=== PATIENT | male | born 1955 | race Caucasian/White ===

== ENCOUNTER 2019-01-20 17:32 | Observation (INO) ==
[~2019-01-20 17:32] MED LIST: AMMONIA AROMATIC ONE
[2019-01-20 18:30] LABS: BASO# 0.03 X1000 (0.0-0.2); BASO% 0.3 % (0.0-0.8); EOS# 0.08 X1000 (0.0-0.7); EOS% 0.8 % (0.0-10.0); HEMATOCRIT 39.6 % (42.0-52.0); HEMOGLOBIN 14.8 g/dL (14.0-18.0); IMM GRAN# 0.03 X1000 (0.0-0.04); IMM GRAN% 0.3 % (0.0-0.5); LYMPH# 3.14 X1000 (1.2-3.4); LYMPH% 32.8 % (20.5-51.1); MCH 33.3 PG (27-31); MCHC 37.4 g/dL (33-37); MONO# 1.19 X1000 (0.11-0.59); MONO% 12.4 % (1.7-9.3); MPV 10.2 FL (7.4-10.4); NEUT# 5.09 X1000 (1.4-6.5); NEUT% 53.4 % (42.2-75.2); PLT 159 X1000 (130-400); RBC 4.45 XMIL (4.7-6.1); RDW 13.2 % (11.5-14.5); WBC 9.56 X1000 (4.8-10.8)
--- NOTE | 2019-01-20 18:32 | EKG Report ---
Test Performed on : 01/20/2019 5:40:09 PM Test Reason : CP Blood Pressure : / mmHG Vent. Rate : 105 BPM Atrial Rate : 105 BPM P-R Int : 172 ms QRS Dur : 090 ms QT Int : 346 ms P-R-T Axes : 070 032 051 degrees QTc Int : 457 ms Sinus tachycardia. Otherwise normal ECG When compared with ECG of 06-JUL-2016 22:19, No significant change was found Unconfirmed Result
[2019-01-20 18:35] LABS: AGAP 20; ALBUMIN 4.4 g/dL (3.5-5.0); ALKALINE PHOSPHATASE 77 U/L (32-122); CHLORIDE 85 mmol/L (98-107); CK PROFILE 338 U/L (24-204); GLUCOSE 101 mg/dL (70-104); GOT 118 U/L (10-34); GPT 87 U/L (10-44); POTASSIUM 3.4 mmol/L (3.5-5.1); SODIUM 126 mmol/L (136-145); TCO2 21 mmol/L (25-35); TOTAL PROTEIN 6.9 g/dL (6.3-8.3)
[2019-01-20 18:38] LABS: BUN 9 mg/dL (8-22); CALCIUM 8.3 mg/dL (8.8-10.2); CREATININE 0.8 mg/dL (0.7-1.2); ESTIMATED GFR > 60
[2019-01-20 18:45] LABS: INR 1.88; PROTIME 22.5 Seconds (11.0-16.0)
[2019-01-20 18:46] LABS: PTT 43.1 Seconds (22.3-41.8)
--- NOTE | 2019-01-20 18:57 | ED EKG INTERP ---
This chart was entered by Frederic Springer Scribe, acting as scribe for Hernán Chan MD. EKG Interpretation - EKG Time of EKG reading by physician:: 17:42 EKG Read and Signed by:: Hernán Chan EKG Interpretation (*Must complete 3 of following elements*): Normal Rate: 105 Rhythm: sinus tachycardia [place]: normal QRS: normal MO Interval: normal ST Wave: normal Attestation - Physician/ RIA Attestation The physician spent face to face time with patient:: Yes Advanced Practice Provider documentation review:: Supervising physician onsite and consulted in the evaluation and care of this patient. The physician did have a face to face encounter with the patient. This chart was documented by the indicated scribe, (Frederic Springer Scribe) and accurately reflects the services I performed and decisions made by me, Hernán Chan MD, as attested by the provider's signature.
--- NOTE | 2019-01-20 19:03 | Diag Imaging Result Doc PS360 ---
EXAM: CT HEAD/C-SPINE W/O CONTRAST INDICATION: AMS TECHNIQUE: This exam was performed using automated exposure control, adjustment of mA or kV according to patient size, and/or use of iterative reconstruction technique. COMPARISON: None. FINDINGS: Head: There is no definite acute infarct given the limited sensitivity of CT versus MRI. There is no discrete intracranial mass, mass effect, or intracranial hemorrhage. There is mild chronic maxillary and sphenoid sinus mucosal thickening. Surrounding soft tissues are grossly unremarkable, otherwise. The calvaria is intact. C-spine: There is excessive motion artifact throughout the study, which may limit evaluation of fine bony details. There is advanced multilevel facet arthropathy throughout the cervical spine. There is also multilevel degenerative disc disease, most significant at C6-7 where there is loss of disc space height and marginal marginal osteophyte formation. This is causing varying degrees of central canal and neuroforaminal narrowing at multiple levels. Otherwise, there is no discrete fracture, subluxation, or intrinsic osseous lesion. The surrounding soft tissues are essentially unremarkable. IMPRESSION: 1.No evidence of acute intracranial pathology. 2.Advanced multilevel degenerative arthropathy throughout the cervical spine but no evidence of fracture or other definite acute C-spine injury. Electronically signed by Dom Douglass 01/20/2019 7:00 PM
[2019-01-20 19:04] LABS: CK INDEX 2.5 (0.0-2.5); CK-MB 8.33 ng/mL (0.0-5.0)
--- NOTE | 2019-01-20 19:04 | Diag Imaging Result Doc PS360 ---
EXAM: CT MAXILLOFACIAL(SINUS) W/O CO INDICATION: FALL/CONTUSION TO LEFT EYE TECHNIQUE: COMPARISON: None. FINDINGS: There is no evidence of facial bone fracture. Specifically, the orbits are intact. The mandible is normally located. There is chronic maxillary and sphenoid sinus mucosal thickening. There is no evidence of intrasinus hemorrhage. The mastoid air cells are clear. The globes are intact. There is no retrobulbar hematoma. Surrounding soft tissues are essentially unremarkable by CT, otherwise. IMPRESSION: No evidence of facial bone fracture. Electronically signed by Dom Douglass 01/20/2019 7:02 PM
[2019-01-20 19:09] LABS: COSMO 252
[2019-01-20 19:16] LABS: UR AMPHETAMINES QUAL NONE DETECTED (NONE DETECT); UR BARBITUATES QUAL NONE DETECTED (NONE DETECT); UR BENZODIAZEPIN QUAL NONE DETECTED (NONE DETECT); UR CANNABINOIDS QUAL NONE DETECTED (NONE DETECT); UR COCAINE QUAL NONE DETECTED (NONE DETECT); UR METHADONE QUAL NONE DETECTED (NONE DETECT); UR METHAMPHETAMINE QUAL NONE DETECTED (NONE DETECT); UR OPIATES QUAL NONE DETECTED (NONE DETECT); UR OXYCODONE QUAL NONE DETECTED (NONE DETECT); UR PCP QUAL NONE DETECTED (NONE DETECT); UR PROPOXYPHENE QUAL NONE DETECTED (NONE DETECT); UR TCA QUAL NONE DETECTED (NONE DETECT)
--- NOTE | 2019-01-20 19:33 | Diag Imaging Result Doc PS360 ---
EXAM: CHEST-PORTABLE INDICATION: CP TECHNIQUE: One view COMPARISON: 07/06/2016 FINDINGS: The lungs are grossly clear. There is no discrete pleural fluid collection or pneumothorax. The cardiomediastinal silhouette and central vasculature are grossly unremarkable. IMPRESSION: No evidence of acute pathology by plain radiograph. Electronically signed by Dom Douglass 01/20/2019 7:31 PM
[2019-01-20] MEDS ORDERED: HALDOL IV ONE (19:37)
[2019-01-20] MEDS ORDERED: M.V.I.-12 10 ML, FOLIC ACID 1 MG, MAGNESIUM SULFATE 1 GM, THIAMINE 100 MG in NS 1,000 ML IV ONE (19:37)
[2019-01-20] MEDS ORDERED: ATIVAN IV ONE (19:37)
[2019-01-20] MEDS ORDERED: NS 1,000 ML IV ONE (19:37)
[2019-01-20] MEDS ORDERED: BENADRYL IV ONE (19:37)
[2019-01-20] MEDS ORDERED: MAGNESIUM SULFATE ONE (20:00)
[2019-01-20] MEDS ORDERED: THIAMINE ONE (20:01)
[2019-01-20] MEDS ORDERED: NS 1,000 ML ONE (21:49)
[2019-01-21] MEDS ORDERED: HALDOL IV ONE (01:26)
[2019-01-21] MEDS ORDERED: BENADRYL IV ONE (01:26)
[2019-01-21] MEDS ORDERED: ATIVAN IV ONE (01:26)
[2019-01-21] MEDS ORDERED: M.V.I.-12 10 ML, FOLIC ACID 1 MG, MAGNESIUM SULFATE 1 GM, THIAMINE 100 MG in NS 1,000 ML IV ONE (01:33)
[2019-01-21] MEDS ORDERED: ATIVAN IV PRN (01:33)
[2019-01-21 07:53] LABS: AGAP 15; ALBUMIN 3.6 g/dL (3.5-5.0); ALKALINE PHOSPHATASE 59 U/L (32-122); BUN 5 mg/dL (8-22); CALCIUM 7.5 mg/dL (8.8-10.2); CHLORIDE 103 mmol/L (98-107); COSMO 279; CREATININE 0.7 mg/dL (0.7-1.2); ESTIMATED GFR > 60; GLUCOSE 78 mg/dL (70-104); GOT 99 U/L (10-34); GPT 73 U/L (10-44); POTASSIUM 3.4 mmol/L (3.5-5.1); SODIUM 142 mmol/L (136-145); TCO2 24 mmol/L (25-35); TOTAL PROTEIN 6.1 g/dL (6.3-8.3)
--- NOTE | 2019-01-21 12:56 | HISTORY AND PHYSICAL ---
PRIMARY CARE PROVIDER: [facility]. CHIEF COMPLAINT: Fell and hit head. HISTORY OF PRESENT ILLNESS: Mr. Acuna is a known alcoholic. He drinks a 6 pack per day, depression, PTSD, COPD, GERD, liver disease, coronary artery disease, congestive heart failure, hypertension, myocardial infarction, chronic pain. He states he called 911 last night because he fell and hit his head. Per his report, he had not been drinking much. He was brought to the ED by EMS. His alcohol level was over 400. Throughout the night, they tried to get him admission to the [facility] in [place]. After the sister came and they had everything squared away to transport him, he refused to sign the transfer papers. Given his alcohol level and hyponatremia, they did a head and cervical spine CT that showed no evidence of acute intracranial pathology as well as maxillofacial that showed no facial bone fracture. He was admitted overnight to be watch for DTs. He did receive 1 bolus of saline in the ER. His sodium is back up to 142. He was also given 2 banana bangs as well as several doses of Ativan and Haldol. At this time, the patient really has no desire to be interviewed. He just wants to sleep, using foul language, and his only intention was calling 911 because he fell and hit his head on the floor. He did not wish to seek any rehab. He at times will use foul language and then will just not answer questions. REVIEW OF SYSTEMS: A 12point review of systems completely negative except for those mentioned in HPI, limited due to patient unwillingness to cooperate. PAST MEDICAL HISTORY: 1. Alcoholism. 2. Alcohol liver disease. 3. Coronary artery disease status post [place]. 4. Hypertension. 5. Congestive heart failure. 6. PTSD. 7. Depression. 8. GERD. PAST SURGICAL HISTORY: Hernia repair. SOCIAL HISTORY: Per the patient, he drinks a 6 pack of beer per day. FAMILY HISTORY: Unknown. HOME MEDICATIONS: Have not been verified. ALLERGIES: No known drug allergies. PHYSICAL EXAMINATION: VITAL SIGNS: Temperature is 98.6 degrees, heart rate 77, respirations 25, blood pressure 103/70, O2 is 94% on 2 L nasal cannula. GENERAL: Mr. Acuna is an unpleasant 63-year-old male who is lying in the ICU bed in no acute distress. HEENT: Appears to be atraumatic, normocephalic. PERRL. NECK: Supple, trachea midline. CARDIOVASCULAR: S1, S2 appreciated. No murmurs, gallops, or rubs. RESPIRATORY: Lungs sound appear to be clear. The patient would not take a deep breaths. GASTROINTESTINAL: Soft, nontender, nondistended. Positive bowel sounds 4 quads. EXTREMITIES: Negative for edema. NEUROLOGIC: The patient did awake to his name being called. He was somewhat agitated at questioning and would use foul language when answering, did not really appreciate any focal deficits. He was able to move himself around in the bed without any problems. DIAGNOSTIC DATA: 1. Head cervical spine CT: No evidence of acute intracranial pathology. 2. Maxillofacial: No evidence of facial bone fracture. 3. EKG: Sinus tachycardia. LABORATORY DATA: White count 9, hemoglobin and hematocrit 14 and 39, platelet count is 159,000. Sodium 126, potassium 3.4, BUN 9, creatinine 0.8, blood glucose 101. A.M. labs: Sodium was up to 142, potassium 3.4, BUN 5, creatinine 0.7, blood glucose was 78. AST is down to 99, ALT down to 73. Alcohol level is down to 198. ASSESSMENT AND PLAN: 1. Hyponatremia, resolved. 2. Alcoholism. The patient states he drinks 6 beers per day. At this point in time, he is not looking for any type of rehabilitation services. We will monitor him for DT. He does have Ativan ordered p.r.n. for agitation. He has a banana bag, currently infusing. 3. Fall secondary to alcoholism. Imaging did not show anything acute. 4. Hypertension. We will continue on home medications have been reconciled. Currently normotensive. 5. Metabolic encephalopathy secondary to #1, improving. 6. Coronary artery disease status post myocardial infarction. No complaints of chest pain. 7. Gastroesophageal reflux disease. 8. Post-traumatic stress disorder, depression, aware. 9. Further recommendation to follow physician evaluation, laboratory, and diagnostic data. Dictated by CHRIS Fernandez for Lul Cheek MD cc: Lul Cheek MD [facility]
[2019-01-21 13:56] VITALS: BP 149/81
--- NOTE | 2019-01-22 07:15 | HISTORY AND PHYSICAL ---
ADDENDUM: Patient seen and examined by myself. Full note dictated and discussed with nurse practitioner. Patient presented to the hospital confused, disoriented and unfortunately was acutely intoxicated. His sodium was 126. He has a known history of coronary artery disease, hypertension, MA, COPD, and history of cerebrovascular accident. His blood pressures were low at 86/63. He was admitted to the hospital to the ICU overnight, and given IV fluids. We will continue to follow. Recheck sodium. Further orders as needed. cc: Lul Cheek MD
--- NOTE | 2019-01-22 12:34 | DISCHARGE SUMMARY ---
ADMISSION DATE: 01/21/2019 DISCHARGE DATE: 01/21/2019 PRIMARY CARE PROVIDER: [facility] PERTINENT PROCEDURES: 1. Head CT: No evidence of acute intracranial pathology. Advanced multilevel degeneration arthropathy throughout the cervical spine, but no evidence of fracture or other definite acute C-spine injury. 2. Maxillofacial: No evidence of facial bone fracture. 3. Chest x-ray: No evidence of acute pathology. DISCHARGE DIAGNOSES: 1. Toxic metabolic encephalopathy secondary to alcoholism, improved. Patient is now awake, alert, oriented, eating, requesting to be discharged home. 2. Alcoholism. The patient drinks 6 beers per day. He is not looking for any type of rehabilitation services at this time. 3. Hyponatremia, completely resolved. 4. Fall secondary to alcohol intoxication. Imaging did not show anything acute. 5. Hypertension. Continue home medications. 6. Coronary artery disease status post myocardial infarction. No complaints of chest pain. 7. Gastroesophageal reflux disease. Continue home medications. 8. Posttraumatic stress disorder/depression. Aware. HOSPITAL COURSE: Briefly, Mr. Acuna came to the ED on 01/20/2019. He was also to be transferred to the [facility] for detoxification through the assistance of his sister; however, the patient refused to sign transfer paper. He had some harsh words with his sister, and he ended up being admitted to our medical service on 01/21/2019. His initial alcohol level was over 400, and this a.m. he is down to 198. He is now awake, alert, oriented, sitting up in the bed in the ICU, eating, and requesting to be discharged. His sodium level is back to normal, and he will be discharged back home with self-care after his ride arrives. VITAL SIGNS AT TIME OF DISCHARGE: Temperature 99.1 degrees, heart rate 91, respirations 26, blood pressure 158/94, O2 is 95%. DISCHARGE DIET: Healthy heart. DISCHARGE MEDICATIONS: Will be his home medications. DISPOSITION: Mr. Acuna is being discharged home with self-care. He is not currently wishing to seek treatment. DISCHARGE INSTRUCTIONS: He can return to the ED or call 911 for any worsening of symptoms. We have reported that he does need alcohol detoxification, and he was accepted to the [facility]; however, he refused to transfer. He has been educated on alcohol abstinence again and can return to the ED or call 911 for any worsening of symptoms. FOLLOW-UP: He will need [facility]. Dictated by CHRIS Fernandez for Lul Cheek MD cc: Lul Cheek MD
--- NOTE | 2019-01-22 15:46 | DISCHARGE SUMMARY ---
ADMISSION DATE: 01/20/2019 DISCHARGE DATE: 01/21/2019 DISCHARGE DIAGNOSES: 1. Hyponatremia. Sodium 126 admit, 146 discharge, resolved. 2. Acute alcohol intoxication, resolved. 3. Coronary artery disease. 4. Hypertension. 5. Chronic obstructive pulmonary disease. 6. Cerebrovascular accident. CONSULTATIONS: None. PROCEDURE: None. BRIEF HOSPITAL COURSE: Patient is a middle-aged male who presented to the hospital secondary to acute alcohol intoxication. Thankfully, he continued to improve. On discharge, he is in no current distress. He is awake, alert, oriented. Stated he is not going to the hospital. Denies any suicidal or homicidal ideations. Sodium level was returned back to normal and therefore we will discharge him home. DISPOSITION: Patient will be discharged home. Will follow up outpatient with primary care of choice. Discussed with patient that he needs to stop drinking. He needs to get into counseling. TIME SPENT: Greater than 30 minutes was spent in total care. cc: Lul Cheek MD
== END 2019-01-21 14:17 | disposition home or self-care (01) ==
LOC: P.ED 17:32 → SUATTDRO 01-21 01:50 → INTOOBSV 01-21 01:50 → P.ICU 01-21 01:50
PROVIDERS: ATTEND Family Medicine
CPT/HCPCS: 70450; 70486; 71010; 71045; 72125; 80053; 80104; 80301; 80305; 80307; 80320; 82055; 82550; 82553; 82948; 83605; 84484; 85025; 85610; 85730; 93005; G0431; G0434; G0477; G0480; G6040; J1200; J1630; J2060; J3411; J3475; J7030; XXXXX

== ENCOUNTER 2019-02-08 11:21 | Inpatient (IN) ==
[2019-02-08 11:31] LABS: OCCULT BLOOD 1 POSITIVE (NEGATIVE)
[2019-02-08 11:40] LABS: BASO# 0.02 X1000 (0.0-0.2); BASO% 0.3 % (0.0-0.8); EOS# 0.07 X1000 (0.0-0.7); HEMATOCRIT 35.9 % (42.0-52.0); IMM GRAN# 0.04 X1000 (0.0-0.04); IMM GRAN% 0.6 % (0.0-0.5); LYMPH# 1.08 X1000 (1.2-3.4); LYMPH% 15.1 % (20.5-51.1); MCHC 36.2 g/dL (33-37); MCV 91.1 FL (81-99); MONO% 11.2 % (1.7-9.3); MPV 11.2 FL (7.4-10.4); NEUT# 5.16 X1000 (1.4-6.5); NEUT% 71.8 % (42.2-75.2); PLT 106 X1000 (130-400); RBC 3.94 XMIL (4.7-6.1); RDW 14.5 % (11.5-14.5); WBC 7.17 X1000 (4.8-10.8)
[2019-02-08 12:08] LABS: ALBUMIN 3.7 g/dL (3.5-5.0); CALCIUM 7.7 mg/dL (8.8-10.2); POTASSIUM 3.1 mmol/L (3.5-5.1); TOTAL BILIRUBIN 1.9 mg/dL (0.20-1.00); TOTAL PROTEIN 5.8 g/dL (6.3-8.3)
[2019-02-08 12:32] LABS: CK INDEX 2.3 (0.0-2.5); CK-MB 5.36 ng/mL (0.0-5.0)
[2019-02-08 13:00] LABS: INR 2.08; PROTIME 24.4 Seconds (11.0-16.0)
[2019-02-08 13:01] LABS: PTT 37.7 Seconds (22.3-41.8)
--- NOTE | 2019-02-08 13:18 | Diag Imaging Result Doc PS360 ---
EXAM: CHEST-2 VIEWS HISTORY: pain TECHNIQUE: Chest two views COMPARISON: 01/20/2019 FINDINGS: The lungs are well expanded. The heart is not enlarged. The vessels are not distended. There are no infiltrates. No pleural effusions. IMPRESSION: No acute abnormality. Electronically signed by Duke Milligan 02/08/2019 1:16 PM
[2019-02-08] MEDS ORDERED: D5 1/2 NS 1,000 ML IV ONE (13:42)
--- NOTE | 2019-02-08 14:26 | Diag Imaging Result Doc PS360 ---
EXAM : CT HEAD/C-SPINE W/O CONTRAST HISTORY: pain TECHNIQUE: 1. CT head without contrast 2. CT cervical spine without contrast COMPARISON: 01/20/2019 FINDINGS: Head: No parenchymal hemorrhage. No epidural or subdural hematoma. No subarachnoid hemorrhage. No mass identified on this noncontrasted exam. No hydrocephalus. No sinus opacification. Cervical spine: There is good alignment to the cervical spine. No precervical soft tissue swelling. No subluxation. No fracture. Moderate degenerative bone spurring. IMPRESSION: Head: No hemorrhage. No no change. Cervical spine: No change. An MRI may be beneficial. This exam was performed using automated exposure control, adjustment of mA or kV according to patient size, and/or use of iterative reconstruction technique. Electronically signed by Duke Milligan 02/08/2019 2:24 PM
[2019-02-08] MEDS ORDERED: ATIVAN IV ONE (15:00)
[2019-02-08] MEDS ORDERED: BENTYL PO PRN (15:13)
[2019-02-08] MEDS ORDERED: ATARAX PO PRN (15:13)
[2019-02-08] MEDS ORDERED: ROBAXIN PO PRN (15:13)
[2019-02-08] MEDS ORDERED: M.V.I.-12 10 ML, FOLIC ACID 1 MG, MAGNESIUM SULFATE 1 GM, THIAMINE 100 MG in NS 1,000 ML IV ONE (15:30)
[2019-02-08] MEDS ORDERED: NS 1,000 ML IV SCH (15:30)
[2019-02-08] MEDS: LIBRIUM PO SCH ×2 (16:14→22:45)
[2019-02-08 16:57] LABS: ALBUMIN 3.7 g/dL (3.5-5.0); CALCIUM 7.9 mg/dL (8.8-10.2); CREATININE 2.3 mg/dL (0.7-1.2); PHOSPHORUS 4.7 mg/dL (2.7-4.5); POTASSIUM 2.7 mmol/L (3.5-5.1)
[2019-02-08 17:17] LABS: CK INDEX 2.5 (0.0-2.5); CK-MB 5.38 ng/mL (0.0-5.0)
[2019-02-08] MEDS ORDERED: PNEUMOVAX 23 IM ONE (17:30)
--- NOTE | 2019-02-08 20:42 | HISTORY AND PHYSICAL ---
CHIEF COMPLAINT: Syncope. HISTORY OF PRESENT ILLNESS: This is a 63-year-old gentleman with a history of COPD, IA, CVA, hypertension and alcohol use and abuse. He presents to the emergency room via EMS stating that he had a near syncopal episode and that he had chest pain that radiated to his lower back, complaining of feeling dizzy, shaking and falling at home. He did state that he has had a black stool during the last 3 days and that the symptoms have persisted for the past 3 days. He states that he has fallen quite a few times, that each time he would stand, start walking, become dizzy and fall. He denies any loss of consciousness. He does drink alcohol daily at least a half a case of beer with his last being Monday night. He denies very little oral intake during this time. He denied any black or bloody vomitus or any bloody stools, any palpitations. He did state that after he fell the second time he landed on his back and that he has had some lower back pain. He does complain of some chest pain. He states that this started after falling forward into a piece of furniture. PAST MEDICAL HISTORY: 1. Alcoholism. 2. Alcoholic liver disease. 3. Coronary artery disease status post [place]. 4. Hypertension. 5. Congestive heart failure. 6. PTSD from [*]. 7. Depression. 8. Gastroesophageal reflux disease. PAST SURGICAL HISTORY: Hernia repair. SOCIAL HISTORY: He drinks half a case of beer a day. He denies illicit drug use or tobacco use. ALLERGIES: No known drug allergies. HOME MEDICATIONS: A list will be obtained by the nursing staff and once verified we will review and restart as appropriate. REVIEW OF SYSTEMS: Discussed with patient with pertinent positives stated in the HPI. He denied any syncope, any palpitations, any fevers or chills chief any shortness of breath, cough, PND, orthopnea, any black or bloody vomitus, any bloody stools, abdominal pain, any hematuria, dysuria, frequency urgency. PHYSICAL EXAMINATION: GENERAL: This is a 63-year-old gentleman who is sitting up in the stretcher in the emergency room in no distress. VITAL SIGNS: Blood pressure is 108/70 with heart rate of 87, respirations are 18, temperature is 97.8 degrees with room air saturations 97-98%. HEENT: Pupils are equal, round, react to light. EOMs are intact sclerae anicteric. Head is normocephalic, atraumatic. Mucous membranes are moist. NECK: Supple. Trachea midline. CARDIOVASCULAR: Regular rate and rhythm. No murmur. S1 and S2 appreciated. He has no lower extremity edema. Calves are nontender bilateral with peripheral pulses palpable x4 extremities. PULMONARY: Breath sounds are clear with no increased work of breathing noted. Chest rises and falls symmetric with respiration. Chest wall is tender to palpation midsternal. GASTROINTESTINAL: Abdomen soft, nontender, nondistended. Bowel sounds in all 4 quadrants. GENITOURINARY: He has no CVA or suprapubic tenderness. NEUROLOGIC: He is alert and oriented x3. He does have a tremor to bilateral extremities. He states that is present when he quits drinking. LABS: WBC is 7.1 with hemoglobin 13, hematocrit 35.9, platelets 106,000. Sodium 131, potassium 3.1, BUN 18, creatinine 3 with a glucose of 107, total bilirubin is 1.9 with AST 87, ALT 79, alkaline phosphatase 67. CPK is 235. Troponin is less than 0.010. Stool for occult blood is positive. Plasma serum blood alcohol reveals none detected. Chest x-ray reveals no acute abnormality. CT of the head and cervical spine reveals no hemorrhage and no change. Cervical spine is good alignment the cervical spine. No precervical soft tissue swelling. No subluxation. No fracture. Moderate degenerate bone spurring. ASSESSMENT AND PLAN: 1. Alcohol withdrawal. 2. Chest pain. Will give a banana bag, start a Librium taper and monitor. 3. Chest pain. The patient states that this pain is present after falling into a piece of furniture. He is tender to palpation. Will continue telemetry. First set of enzymes are negative. Will trend cardiac enzymes as well as troponin. We will identify his home medications and continue as appropriate. 4. Acute kidney injury. We will hydrate, hold any renal toxic medications, renal dose medications as needed and trend labs. 5. Alcoholic liver disease. Liver function tests are elevated. Will trend daily and monitor. 6. Hypertension. Will monitor vital signs and continue his home medications as appropriate. 7. History of congestive heart failure. We will continue his medications. 8. History of gastroesophageal reflux disease with proton pump inhibitor. 9. History of coronary artery disease status post myocardial infarction. Will continue home medications. 10. Frequent falls secondary to alcoholism. Imaging shows no acute. Will be placed on fall precautions. 11. Posttraumatic stress disorder, aware. 12. Hypokalemia, hyponatremia. We will replete electrolytes and trend daily. Further treatments pending hospital course. Dictated by CHRIS Santacruz for Lul Cheek MD cc: CHRIS Santacruz MD
--- NOTE | 2019-02-08 20:54 | HISTORY AND PHYSICAL ---
ADDENDUM: Patient seen and examined by myself. Full note dictated and discussed with nurse practitioner. Patient presented to the hospital after nearly passing out at home. The patient has a known history of COPD, history of stroke, hypertension and seizures. States he felt dizzy at home. He has been tremulous. Notes he normally drinks at least half a case of beer a more day but had stopped drinking 2 days ago. We will admit patient to the hospital and follow him very closely for alcohol withdrawal, place on Librium. We will follow his blood pressures. cc: Lul Cheek MD
[2019-02-09] MEDS: LIBRIUM PO SCH ×4 (02:30→22:41)
[2019-02-09 05:35] LABS: BASO# 0.02 X1000 (0.0-0.2); BASO% 0.3 % (0.0-0.8); EOS% 1.3 % (0.0-10.0); HEMATOCRIT 34.5 % (42.0-52.0); HEMOGLOBIN 12.3 g/dL (14.0-18.0); IMM GRAN# 0.03 X1000 (0.0-0.04); IMM GRAN% 0.4 % (0.0-0.5); LYMPH# 1.23 X1000 (1.2-3.4); MCH 32.9 PG (27-31); MCHC 35.7 g/dL (33-37); MCV 92.2 FL (81-99); MONO# 0.64 X1000 (0.11-0.59); MONO% 8.3 % (1.7-9.3); NEUT# 5.67 X1000 (1.4-6.5); NEUT% 73.7 % (42.2-75.2); PLT 100 X1000 (130-400); RBC 3.74 XMIL (4.7-6.1); RDW 14.6 % (11.5-14.5); WBC 7.69 X1000 (4.8-10.8)
[2019-02-09 06:12] LABS: ALBUMIN 3.6 g/dL (3.5-5.0); CALCIUM 7.9 mg/dL (8.8-10.2); CREATININE 1.9 mg/dL (0.7-1.2); POTASSIUM 2.9 mmol/L (3.5-5.1); TOTAL BILIRUBIN 1.3 mg/dL (0.20-1.00); TOTAL PROTEIN 5.4 g/dL (6.3-8.3)
[2019-02-09] MEDS ORDERED: KLOR-CON PO ONE (07:40)
[2019-02-09] MEDS: VITAMIN D PO SCH (08:51)
[2019-02-09] MEDS: FISH OIL CONCENTRATE PO SCH (08:52)
[2019-02-09] MEDS: FLOMAX PO SCH (08:52)
[2019-02-09] MEDS: FOLIC ACID PO SCH (08:52)
[2019-02-09] MEDS: PRINIVIL PO SCH (08:52)
[2019-02-09] MEDS: LYRICA PO SCH ×2 (08:52→22:41)
[2019-02-09] MEDS: PROTONIX PO SCH (08:52)
[2019-02-09] MEDS: HYDROCHLOROTHIAZIDE PO SCH (08:53)
[2019-02-09] MEDS: VITAMIN B-1 PO SCH (08:53)
[2019-02-09] MEDS: ZOLOFT PO SCH (08:53)
[2019-02-09] MEDS ORDERED: M.V.I.-12 10 ML, FOLIC ACID 1 MG, MAGNESIUM SULFATE 1 GM, THIAMINE 100 MG in NS 1,000 ML IV SCH (09:00)
--- NOTE | 2019-02-09 11:52 | EKG Report ---
Test Performed on : 02/08/2019 11:29:45 AM Test Reason : syncope Blood Pressure : / mmHG Vent. Rate : 089 BPM Atrial Rate : 089 BPM P-R Int : 160 ms QRS Dur : 084 ms QT Int : 402 ms P-R-T Axes : 073 026 048 degrees QTc Int : 489 ms Normal sinus rhythm. Cannot rule out Anterior infarct , age undetermined Abnormal ECG When compared with ECG of 20-JAN-2019 17:40, (Unconfirmed) No significant change was found Unconfirmed Result
--- NOTE | 2019-02-09 12:57 | PROGRESS NOTE ---
DATE: 02/09/2019 SUBJECTIVE: Patient notes that he is feeling better. Still states he is unaware of what could have made him become lightheaded. Interestingly when inquiring about his alcohol intake, patient states "I can stop any time I want to stop. I have not drank in 3 days. I do not know what the big deal is." OBJECTIVE: Vital Signs: Reviewed. General: He is awake, alert. He is in no current respiratory distress. He is still quite weak on exam. HEENT: Normocephalic. Neck: Supple. Cardiovascular: Regular rate. Chest: Clear. Abdomen: Soft. Extremities: Moves all extremities. Neurologic: No changes. ASSESSMENT: 1. Syncope, likely secondary to his chronic alcoholism. 2. Hyponatremia. 3. Acute on chronic renal failure. Creatinine is actually improving; he is down from 2.3 to a current 1.9. 4. Chest pain, resolved. 5. Known congestive heart failure. 6. Chronic alcoholism. 7. Others. PLAN: We will continue patient in the hospital. Continue to follow. Continue physical therapy. Further orders as needed. We will replace his potassium and follow his sodium. cc: Lul Cheek MD
[2019-02-09] MEDS ORDERED: NICODERM PATCH TD ONE (16:54)
[2019-02-09] MEDS ORDERED: HALDOL IV PRN (18:16)
[2019-02-09] MEDS ORDERED: BENADRYL IV PRN (18:17)
[2019-02-09] MEDS ORDERED: ROBAXIN PO SCH (21:00)
[2019-02-10] MEDS: LYRICA PO SCH ×2 (00:01→10:26)
[2019-02-10] MEDS: LIBRIUM PO SCH ×3 (00:01→10:27)
[2019-02-10 06:11] LABS: HEMATOCRIT 34.4 % (42.0-52.0); MCH 32.7 PG (27-31); MCHC 34.9 g/dL (33-37); MCV 93.7 FL (81-99); MPV 10.8 FL (7.4-10.4); RBC 3.67 XMIL (4.7-6.1); RDW 14.9 % (11.5-14.5); WBC 4.95 X1000 (4.8-10.8)
[2019-02-10 06:40] LABS: ESTIMATED GFR > 60
[2019-02-10] MEDS ORDERED: TYLENOL PO ONE (06:44)
[2019-02-10 06:46] LABS: AGAP 12; ALBUMIN 3.3 g/dL (3.5-5.0); ALKALINE PHOSPHATASE 129 U/L (32-122); BUN 17 mg/dL (8-22); CALCIUM 8.6 mg/dL (8.8-10.2); CHLORIDE 104 mmol/L (98-107); COSMO 280; GLUCOSE 106 mg/dL (70-104); GOT 89 U/L (10-34); GPT 81 U/L (10-44); POTASSIUM 3.1 mmol/L (3.5-5.1); SODIUM 139 mmol/L (136-145); TCO2 23 mmol/L (25-35); TOTAL PROTEIN 5.8 g/dL (6.3-8.3)
[2019-02-10] MEDS ORDERED: MAGNESIUM SULFATE 2 GM/S.W.I. 2 GM/50 ML IVPB IV ONE ×2 (09:02→15:00)
[2019-02-10] MEDS ORDERED: KLOR-CON PO ONE (09:04)
[2019-02-10] MEDS ORDERED: MAG-OX PO SCH (09:15)
[2019-02-10] MEDS: FISH OIL CONCENTRATE PO SCH (10:25)
[2019-02-10] MEDS: PROTONIX PO SCH (10:26)
[2019-02-10] MEDS: FOLIC ACID PO SCH (10:26)
[2019-02-10] MEDS: FLOMAX PO SCH (10:26)
[2019-02-10] MEDS: ZOLOFT PO SCH (10:27)
[2019-02-10] MEDS: HYDROCHLOROTHIAZIDE PO SCH (10:28)
[2019-02-10] MEDS: VITAMIN B-1 PO SCH (10:28)
[2019-02-10] MEDS: VITAMIN D PO SCH (10:28)
[2019-02-10] MEDS: PRINIVIL PO SCH (10:28)
[2019-02-10 10:43] VITALS: BP 132/76
[2019-02-10] MEDS ORDERED: LIBRIUM PO SCH (13:00)
--- NOTE | 2019-02-10 15:07 | DISCHARGE SUMMARY ---
ADMISSION DATE: 02/08/2019 DISCHARGE DATE: 02/10/2019 DISCHARGE DIAGNOSES: 1. Chronic alcoholism, although the patient states he can stop anytime he wants to and states that he has not drank in 3 days. Therefore, alcohol ingestion is not a problem. 2. Alcoholic liver disease. 3. Acute renal failure, resolved. Creatinine 2.3 at admission, 1.0 at discharge. 4. Hyponatremia, resolved. At admission, 129. At discharge, 130. 5. Hypokalemia, resolved. At admission, 2.7. At discharge, 3.1. 6. Hypomagnesemia, replaced. 7. Chest pain, resolved. 8. Frequent falls due to his alcoholism. 9. Posttraumatic stress. 10. Hypokalemia. 11. Hyponatremia. CONSULTATIONS: None. PROCEDURES: None. BRIEF HOSPITAL COURSE: The patient is a 63-year-old male who currently is awake, alert. He is in no distress. He was admitted to the hospital secondary to a syncopal episode which was secondary mainly to dehydration probably from his alcoholism but he also was on a diuretic. Thankfully, in the hospital, he has had no current problems other than the fact that he refuses to ask for assistance when he stands. He is quite mobile and has not fallen in the hospital. DISPOSITION: We will discharge patient home. Certainly would prefer him to go to rehab. He has declined. We would prefer him to stay in the hospital for a few more days. He has declined. I discussed with him that he needs to stop his hydrochlorothiazide and Lasix as this could have contributed to his dehydration which caused his renal failure, hypokalemia, hyponatremia, and likely contributing if not caused his syncopal episode. Attempted to discuss with patient the importance of stopping alcohol. He became almost instantly angry, agitated, and, to some degree, combative as he was raising his fists at myself. He has done this to the staff as well. We will restart his home medications. We will restart his Xarelto at this point as he has congestive heart failure, known coronary artery disease, and certainly has risk factors for worsening. Without the hydrochlorothiazide and the Lasix, and the volume depletion, he has not had any syncopal type episodes while he has been in the hospital. However, should he begin falling again, he certainly will need to stop Xarelto at that point. Greater than 35 minutes were spent in total care. cc: Lul Cheek MD
== END 2019-02-10 12:38 | disposition home or self-care (01) | DRG 683 ==
LOC: P.ED 11:21 → P.MEDSURG 15:56
PROVIDERS: ATTEND Family Medicine
CPT/HCPCS: 70450; 71020; 71046; 72125; 80053; 80069; 80307; 80320; 82055; 82270; 82550; 82553; 82948; 83605; 83735; 84484; 85025; 85027; 85610; 85730; 86850; 86900; 86901; 90732; 93005; A9270; G0480; G6040; J1200; J1630; J2060; J3411; J3475; J7030; XXXXX

== ENCOUNTER 2019-10-27 14:57 | Inpatient (IN) ==
[2019-10-27] MEDS ORDERED: NICODERM PATCH TD ONE (16:34)
[2019-10-27 17:34] LABS: URINE SOURCE CLEAN CATCH
[2019-10-27 17:42] LABS: BILIRUBIN URINE NEGATIVE (NEGATIVE); BLOOD URINE NEGATIVE (NEGATIVE); COLOR YELLOW; GLUCOSE URINE NEGATIVE (NEGATIVE); KETONE URINE 10 mg/dL (NEGATIVE); LEUKOCYTES URINE NEGATIVE (NEGATIVE); NITRITE URINE NEGATIVE (NEGATIVE); PROTEIN URINE NEGATIVE (NEGATIVE); SP GRAVITY URINE 1.006; TURBIDITY URINE CLEAR (CLEAR); UROBILINOGEN URINE NORMAL (NORMAL)
[2019-10-27 17:48] LABS: UR AMPHETAMINES QUAL NONE DETECTED (NONE DETECT); UR BARBITUATES QUAL NONE DETECTED (NONE DETECT); UR BENZODIAZEPIN QUAL NONE DETECTED (NONE DETECT); UR CANNABINOIDS QUAL NONE DETECTED (NONE DETECT); UR COCAINE QUAL NONE DETECTED (NONE DETECT); UR METHADONE QUAL NONE DETECTED (NONE DETECT); UR METHAMPHETAMINE QUAL NONE DETECTED (NONE DETECT); UR OPIATES QUAL NONE DETECTED (NONE DETECT); UR OXYCODONE QUAL NONE DETECTED (NONE DETECT); UR PCP QUAL NONE DETECTED (NONE DETECT); UR PROPOXYPHENE QUAL NONE DETECTED (NONE DETECT); UR TCA QUAL NONE DETECTED (NONE DETECT)
[2019-10-27 17:51] LABS: ESTIMATED GFR > 60
[2019-10-27 18:02] LABS: AGAP 21; ALBUMIN 4.1 g/dL (3.5-5.0); ALKALINE PHOSPHATASE 105 U/L (32-122); BUN 15 mg/dL (8-22); CALCIUM 7.9 mg/dL (8.8-10.2); CHLORIDE 82 mmol/L (98-107); COSMO 248; CREATININE 0.7 mg/dL (0.7-1.2); GLUCOSE 83 mg/dL (70-104); GOT 101 U/L (10-34); GPT 48 U/L (10-44); POTASSIUM 3.4 mmol/L (3.5-5.1); SODIUM 123 mmol/L (136-145); TCO2 20 mmol/L (25-35); UR EPITHELIAL CELLS <10 /HPF (<10); URINE BACTERIA NEGATIVE /HPF; URINE RBC <10 /HPF (<10); URINE WBC <10 /HPF (<10)
[2019-10-27 18:04] LABS: URINE CASTS NONE SEEN; URINE CRYSTALS NONE SEEN; URINE YEAST NONE SEEN
[2019-10-27 18:04] LABS: BASO# 0.02 X1000 (0.0-0.2); BASO% 0.2 % (0.0-0.8); EOS# 0.03 X1000 (0.0-0.7); EOS% 0.3 % (0.0-10.0); HEMATOCRIT 23.1 % (42.0-52.0); HEMOGLOBIN 7.9 g/dL (14.0-18.0); IMM GRAN# 0.03 X1000 (0.0-0.04); IMM GRAN% 0.3 % (0.0-0.5); LYMPH# 1.98 X1000 (1.2-3.4); LYMPH% 22.6 % (20.5-51.1); MCH 32.8 PG (27-31); MCHC 34.2 g/dL (33-37); MCV 95.9 FL (81-99); MONO% 11.4 % (1.7-9.3); MPV 9.4 FL (7.4-10.4); NEUT# 5.69 X1000 (1.4-6.5); NEUT% 65.2 % (42.2-75.2); PLT 150 X1000 (130-400); RBC 2.41 XMIL (4.7-6.1); RDW 13.7 % (11.5-14.5); WBC 8.75 X1000 (4.8-10.8)
[2019-10-27 18:16] LABS: FREE T4 0.95 ng/dL (0.93-1.70)
--- NOTE | 2019-10-27 18:28 | PROVIDER DOCUMENTATION ---
This chart was entered by Jerod Grady Scribe, acting as scribe for Hernán Chan MD. HPI-Psychological Disorder - General Chief Complaint: Psych-High Risk Stated Complaint: psych/etoh Time Seen by Provider: 10/27/19 15:49 Source: patient Allergies/Adverse Reactions: Patient Allergies Allergy/AdvReac Type Severity Reaction Status Date / Time No Known Allergies Allergy Verified 10/20/19 15:49 Home Medications: Home Medication List Medication Instructions Recorded Confirmed Last Taken Type Gabapentin [Neurontin] 400 mg PO TID 01/12/16 10/20/19 04/09/16 History Thiamine HCl 100 mg PO DAILY 01/12/16 10/20/19 04/09/16 History Atorvastatin Calcium [Lipitor] 40 mg PO DAILY 02/08/19 10/20/19 Unknown History Cholecalciferol (Vit D3) [Vitamin 2,000 unit PO DAILY 02/08/19 10/20/19 Unknown History D3] Folic Acid 1 mg PO DAILY 02/08/19 10/20/19 Unknown History Methocarbamol [Robaxin-750] 750 mg PO HS 02/08/19 10/20/19 Unknown History [place]-3/Dha/Epa/Fish Oil [Ultra 1 ea PO BID 02/08/19 10/20/19 Unknown History [place]-3 Softgel] Pantoprazole Sodium 40 mg PO DAILY 02/08/19 10/20/19 Unknown History Rivaroxaban [Xarelto] 20 mg PO QPM 02/08/19 10/20/19 Unknown History Albuterol Sulfate [Proair Hfa] 2 puff IN Q4H PRN 10/20/19 10/20/19 Unknown History Budesonide/Formoterol Inhaler 2 puff IN BID 10/20/19 10/20/19 Unknown History [Symbicort 160/4.5 Microgm Inhaler] Trazodone [Desyrel] 0.5 - 1 tab PO HS 10/20/19 10/20/19 Unknown History - History of Present Illness-Psych Nature of Presenting Problem: Pt is a 64 y/o M presents to the ED by EMS after a mental break down. He states sometimes he just loses it. He states his time in [place] bring back memory, He states he does like to drink his beer and smokes. Onset/Duration: reports: other Timing: reports: changing over time Severity: reports: mild Situational problems related to:: reports: other Psychiatric Complaints: reports: confused, hallucinating. denies: homicidal thoughts, suicidal ideation Substance Use: reports: alcohol Previous psych related hospitalizations?: Yes Patient arrived by:: EMS called by spouse/family Similar Symptoms Previously?: No Recently seen or treated by another doctor?: No Review of Systems - Adult - REVIEW OF SYSTEMS - ADULT Constitutional: denies: chills, fever Eyes: reports: no symptoms reported Ears, Nose, Mouth & Throat: reports: no symptoms reported Cardiovascular: denies: chest pain, edema Respiratory: denies: cough, shortness of breath Gastrointestinal: reports: no symptoms reported Genitourinary: reports: no symptoms reported Musculoskeletal: denies: back pain, neck pain Integumentary: reports: no symptoms reported Neurological: denies: dizziness/vertigo, headache/migraines Psychiatric: reports: depression, emotional problems. denies: suicidal thoughts Endocrine: reports: no symptoms reported Hematologic/Lymphatic: reports: no symptoms reported Allergic/Immunologic: reports: no symptoms reported All Other Systems: Reviewed and Negative Past History - Adult - PAST MEDICAL HISTORY-ADULT Review of Records: reports: Old Records Reviewed, Nursing Assessment Review, Medications Reviewed Major Childhood Illnesses: reports: denies history Cardiovascular: reports: CAD, CHF, HTN, [place] Respiratory: reports: COPD Gastrointestinal: reports: cholelithiasis, GERD, liver disease Obstetrical/Gynecological: reports: denies history Genitourinary: reports: denies history Musculoskeletal: reports: chronic pain Neurological: reports: CVA, degenerative disease Psychiatric: reports: depression, ptsd Endocrine/Immune: reports: denies history Other Conditions: reports: denies history - PRIOR SURGERIES/PROCEDURES Surgical/Procedure History: reports: hernia repair - PRIOR HOSPITALIZATIONS Prior Hospitalizations: reports: none - IMMUNIZATION STATUS Childhood Immunizations: See Nurse Assessment Flu Vaccine: See Nurse Assessment - FAMILY HISTORY Family History: reviewed, not pertinent - SOCIAL HISTORY Smoking: greater than 1 pack/day Substance Use: alcohol Alcohol Use Frequency: every day Living Situation: alone Physical Exam-Psych Focus - Physical Exam-Psych Initial Vital Signs Reviewed: Yes Appearance: negative: appropriate appearance (Put is unkept with body odor), appropriate insight, neat Neurological: alert, calm, oriented x 3 Behavior/Eye Contact/Speech: cooperative, good eye contact, decreased rate of speech Thoughts/Hallucinations: no apparent hallucination HENMT: moist mucous membranes, normal ENT inspection Neck: full range of motion, supple, normal inspection Respiratory: lungs clear, no pleuratic chest pain, no respiratory distress, no accessory muscle use Cardiovascular: normal peripheral pulses, regular rate, rhythm Abdominal Exam: normal bowel sounds, soft Extremity: no pedal edema. negative: normal gait, deformity Integumentary: normal color, normal turgor, warm/dry Progress - PLAN OF CARE/RESULTS Progress/Plan/Lab Results: Vital Signs - 8 hr 10/27/19 15:12 Temperature 98.3 F Pulse Rate 87 Respiratory Rate 18 Blood Pressure 128/82 O2 Sat by Pulse Oximetry 100 Laboratory Results - last 24 hr 10/27/19 10/27/19 10/27/19 17:23 17:25 17:25 WBC 8.75 RBC 2.41 L Hgb 7.9 L Hct 23.1 L MCV 95.9 MCH 32.8 H MCHC 34.2 RDW Std Deviation 13.7 Plt Count 150 MPV 9.4 Immature Gran % (Auto) 0.3 Neut % (Auto) 65.2 Lymph % (Auto) 22.6 [place] % (Auto) 11.4 H Eos % (Auto) 0.3 Baso % (Auto) 0.2 Immature Gran # (Auto) 0.03 Neut # (Auto) 5.69 Lymph # (Auto) 1.98 [place] # (Auto) 1.00 H Eos # (Auto) 0.03 Baso # (Auto) 0.02 Sodium 123 L Potassium 3.4 L Chloride 82 L Carbon Dioxide 20 L Anion Gap 21 BUN 15 Creatinine 0.7 Estimated GFR/1.73 m2 > 60 BUN/Creatinine Ratio 21 Glucose 83 Calculated Osmolality 248 Calcium 7.9 L Total Bilirubin 1.20 H AST 101 H ALT 48 H Alkaline Phosphatase 105 Total Protein 7.0 Albumin 4.1 Globulin 3.0 Albumin/Globulin Ratio 1.0 Vitamin B12 430 TSH Free T4 0.95 Urine Source Urine Color Urine Turbidity Urine pH Ur Specific [place] Urine Protein Ur Glucose (Stick) Ur Ketones (Stick) Urine Blood Urine Nitrite Urine Bilirubin Urobilinogen Dipstick Urine Leukocytes Urine WBC (Auto) Urine RBC (Auto) U Epithel Cells (Auto) Urine Bacteria (Auto) Urine Crystals Small Round Cells Urine Casts Urine Yeast-like Cells Urine Opiates Screen Ur Oxycodone Screen Urine Methadone Screen U Propoxyphene Qual Ur Barbituates Screen Ur Tricyclics Screen Ur Phencyclidine Scrn Ur Amphetamines Screen U Methamphetamines Scrn U Benzodiazepines Scrn Urine Cocaine Screen U Cannabinoids Screen Plasma/Serum Ethyl Alc 10/27/19 10/27/19 10/27/19 17:25 17:25 17:25 WBC RBC Hgb Hct MCV MCH MCHC RDW Std Deviation Plt Count MPV Immature Gran % (Auto) Neut % (Auto) Lymph % (Auto) [place] % (Auto) Eos % (Auto) Baso % (Auto) Immature Gran # (Auto) Neut # (Auto) Lymph # (Auto) [place] # (Auto) Eos # (Auto) Baso # (Auto) Sodium Potassium Chloride Carbon Dioxide Anion Gap BUN Creatinine Estimated GFR/1.73 m2 BUN/Creatinine Ratio Glucose Calculated Osmolality Calcium Total Bilirubin AST ALT Alkaline Phosphatase Total Protein Albumin Globulin Albumin/Globulin Ratio Vitamin B12 TSH 3.75 Free T4 Urine Source CLEAN CATCH Urine Color YELLOW Urine Turbidity CLEAR Urine pH 6.0 Ur Specific [place] 1.006 Urine Protein NEGATIVE Ur Glucose (Stick) NEGATIVE Ur Ketones (Stick) 10 A Urine Blood NEGATIVE Urine Nitrite NEGATIVE Urine Bilirubin NEGATIVE Urobilinogen Dipstick NORMAL Urine Leukocytes NEGATIVE Urine WBC (Auto) <10 Urine RBC (Auto) <10 U Epithel Cells (Auto) <10 Urine Bacteria (Auto) NEGATIVE Urine Crystals NONE SEEN Small Round Cells Not Reportable Urine Casts NONE SEEN Urine Yeast-like Cells NONE SEEN Urine Opiates Screen Ur Oxycodone Screen Urine Methadone Screen U Propoxyphene Qual Ur Barbituates Screen Ur Tricyclics Screen Ur Phencyclidine Scrn Ur Amphetamines Screen U Methamphetamines Scrn U Benzodiazepines Scrn Urine Cocaine Screen U Cannabinoids Screen Plasma/Serum Ethyl Alc 275 H 10/27/19 17:25 WBC RBC Hgb Hct MCV MCH MCHC RDW Std Deviation Plt Count MPV Immature Gran % (Auto) Neut % (Auto) Lymph % (Auto) [place] % (Auto) Eos % (Auto) Baso % (Auto) Immature Gran # (Auto) Neut # (Auto) Lymph # (Auto) [place] # (Auto) Eos # (Auto) Baso # (Auto) Sodium Potassium Chloride Carbon Dioxide Anion Gap BUN Creatinine Estimated GFR/1.73 m2 BUN/Creatinine Ratio Glucose Calculated Osmolality Calcium Total Bilirubin AST ALT Alkaline Phosphatase Total Protein Albumin Globulin Albumin/Globulin Ratio Vitamin B12 TSH Free T4 Urine Source Urine Color Urine Turbidity Urine pH Ur Specific [place] Urine Protein Ur Glucose (Stick) Ur Ketones (Stick) Urine Blood Urine Nitrite Urine Bilirubin Urobilinogen Dipstick Urine Leukocytes Urine WBC (Auto) Urine RBC (Auto) U Epithel Cells (Auto) Urine Bacteria (Auto) Urine Crystals Small Round Cells Urine Casts Urine Yeast-like Cells Urine Opiates Screen NONE DETECTED Ur Oxycodone Screen NONE DETECTED Urine Methadone Screen NONE DETECTED U Propoxyphene Qual NONE DETECTED Ur Barbituates Screen NONE DETECTED Ur Tricyclics Screen NONE DETECTED Ur Phencyclidine Scrn NONE DETECTED Ur Amphetamines Screen NONE DETECTED U Methamphetamines Scrn NONE DETECTED U Benzodiazepines Scrn NONE DETECTED Urine Cocaine Screen NONE DETECTED U Cannabinoids Screen NONE DETECTED Plasma/Serum Ethyl Alc Orders Category Date Time Status ALCOHOL BLOOD Stat Lab 10/27/19 17:25 Completed CBC WITH ELECTRONIC DIFF [HEME] Stat Lab 10/27/19 17:23 Completed COMPREHENSIVE METABOLIC PANEL [CHEM] Stat Lab 10/27/19 17:25 Completed FREE T4 Stat Lab 10/27/19 17:25 Completed TSH Stat Lab 10/27/19 17:25 Completed URINALYSIS W/POSS RFLX CULT [URINALYSIS] Stat Lab 10/27/19 17:25 Completed URINE DRUG SCREEN PL Stat Lab 10/27/19 17:25 Completed URINE MANUAL MICROSCOPIC [URINALYSIS] Stat Lab 10/27/19 17:25 Completed VITAMIN B12 Stat Lab 10/27/19 17:25 Completed Nicotine Patch [Nicoderm Patch] Med 10/27/19 16:34 Discontinued 21 mg TD NOW ONE Result Diagrams: 10/27/19 17:23 10/27/19 17:25 - REASSESSMENT Reassessment #1 Time Reassessed: 17:43 ([facility] He is active tremors in hand with eating) Status: unchanged Departure - Departure Date of Disposition Decision: 10/27/19 Time of Disposition Decision: 18:26 DIAGNOSIS: Severe anemia, Alcohol abuse, Alcohol dependence with intoxication, Hyponatremia syndrome Disposition: ADMITTED INPATIENT 09 Certified Medical Emergency: Emergent Condition: Stable Referrals and Follow-Ups: None,PCP [Primary Care Provider] - - Critical Care Note This patient required my direct & personal management of CC.: No Attestation - Physician/ RIA Attestation Patient care was provided by Advanced Practice Provider:: No The physician spent face to face time with patient:: Yes Advanced Practice Provider documentation review:: Supervising physician onsite and consulted in the evaluation and care of this patient. The physician did have a face to face encounter with the patient. This chart was documented by the indicated scribe, (Jerod Grady Scribe) and accurately reflects the services I performed and decisions made by me, Hernán Sarmiento MD, as attested by the provider's signature.
[2019-10-27] MEDS: LIBRIUM PO SCH (18:30)
[2019-10-27] MEDS ORDERED: NS 2,000 ML IV ONE (18:44)
[2019-10-27] MEDS ORDERED: NS 500 ML IV ONE (20:37)
[2019-10-27] MEDS ORDERED: M.V.I.-12 10 ML, FOLIC ACID 1 MG, MAGNESIUM SULFATE 1 GM, THIAMINE 100 MG in NS 1,000 ML IV ONE (22:35)
[2019-10-27] MEDS ORDERED: ZOFRAN IV PRN (22:52)
[2019-10-27] MEDS ORDERED: TYLENOL PO PRN (22:52)
[2019-10-27] MEDS: ATIVAN IV PRN (23:31)
[2019-10-27] MEDS: NS 1,000 ML IV SCH (23:32)
[2019-10-28] MEDS ORDERED: ATIVAN IV ONE (00:31)
--- NOTE | 2019-10-28 00:47 | HISTORY AND PHYSICAL ---
PRIMARY CARE PROVIDER: [facility]. CHIEF COMPLAINTS: Mental breakdown, not feeling well. HISTORY OF PRESENTING ILLNESS: A 64-year-old male with a history of chronic alcoholism, coronary artery disease, hypertension, depression, who initially presented to [facility] with complaints of having a mental breakdown. He states that he is not feeling well. He is sad. He was seen there. He was found to be hyponatremic and anemic and due to the fact that he will need psychiatric evaluation he was transferred to [facility] for further treatment. At the time of my examination, patient denied any headache, fever, chills, chest pain, shortness of breath or any weight changes, but seems depressed and not wanting to answer many questions. PAST MEDICAL HISTORY: Includes chronic alcoholism, alcoholic liver disease, coronary artery disease, hypertension, CHF, depression. PAST SURGICAL HISTORY: Hernia repair. ALLERGIES: No known drug allergies. CURRENT MEDICATIONS: None. SOCIAL HISTORY: A 40+ pack years history of smoking. Admits to drinking alcohol about a half a case to a case of beer daily. Denies any illicit drug use. FAMILY HISTORY: No history of coronary artery disease. REVIEW OF SYSTEMS: Fourteen point review of systems is as listed in HPI. Other systems negative. PHYSICAL EXAMINATION: GENERAL: Cooperative, friendly male. He is resting more comfortably now. VITAL SIGNS: Temperature 98.3 degrees, pulse 87, respiration 18, blood pressure 128/82. HEENT: Atraumatic, normocephalic. Extraocular movements intact. PERRLA. NECK: No masses. CHEST: Scattered wheezes. CARDIOVASCULAR: Regular rate and rhythm. ABDOMEN: Soft. Positive bowel sounds. EXTREMITIES: No edema. NEUROLOGIC: He is awake, alert, oriented x2. GENITOURINARY: No bladder distention. SKIN: Warm. LABORATORIES AND STUDIES: WBC is 8.75, hemoglobin 7.9, hematocrit 23.1, platelets 150,000. Sodium 123, potassium 3.4, chloride 82, CO2 is 20, BUN is 15, creatinine 0.7, glucose is 83. Toxicology screen shows alcohol level of 275. ASSESSMENT: This is a 64-year-old male with a history of chronic alcoholism, coronary artery disease, hypertension, congestive heart failure and depression, who initially presented to [facility] with complaint of having a mental breakdown. He was seen there. He was found to be profoundly hyponatremic and also anemic and due to lack of beds there he was transferred to [facility] for further management. 1. Hyponatremia. 2. Chronic alcoholism. 3. Anemia. 4. Depression, unclear if there is suicidal ideation. PLAN: 1. We will admit patient to ICU. 2. We will give patient a banana bag and restart him on maintenance IV fluids. 3. We will check his electrolytes. 4. We will start patient on Librium for signs of DTs. 5. We will give patient a blood transfusion of 1 unit. 6. We will consult Psychiatry. 7. Put patient on DVT prophylaxis with SCDs. 8. We will continue to follow, and reassess and make further recommendation based on patient's clinical course. cc: MD Lul Quiroz MD
[2019-10-28 00:57] LABS: URINE SOURCE CATH
[2019-10-28 01:07] LABS: BILIRUBIN URINE NEGATIVE (NEGATIVE); BLOOD URINE NEGATIVE (NEGATIVE); COLOR YELLOW; GLUCOSE URINE NEGATIVE (NEGATIVE); KETONE URINE NEGATIVE (NEGATIVE); LEUKOCYTES URINE NEGATIVE (NEGATIVE); NITRITE URINE NEGATIVE (NEGATIVE); PROTEIN URINE NEGATIVE (NEGATIVE); SP GRAVITY URINE 1.003; TURBIDITY URINE CLEAR (CLEAR); UR EPITHELIAL CELLS <10 /HPF (<10); URINE BACTERIA NEGATIVE /HPF; URINE RBC <10 /HPF (<10); URINE WBC <10 /HPF (<10); UROBILINOGEN URINE NORMAL (NORMAL)
[2019-10-28] MEDS: LIBRIUM PO SCH ×2 (02:23→06:38)
[2019-10-28 05:12] LABS: HEMATOCRIT 26.7 % (42.0-52.0); HEMOGLOBIN 9.4 g/dL (14.0-18.0); MCH 33.7 PG (27-31); MCHC 35.2 g/dL (33-37); MCV 95.7 FL (81-99); MPV 9.9 FL (7.4-10.4); RBC 2.79 XMIL (4.7-6.1); WBC 6.6 X1000 (4.8-10.8)
[2019-10-28 05:36] LABS: AGAP 15; ALBUMIN 3.1 g/dL (3.5-5.0); ALKALINE PHOSPHATASE 102 U/L (32-122); BUN 12 mg/dL (8-22); CALCIUM 7.7 mg/dL (8.8-10.2); CHLORIDE 104 mmol/L (98-107); COSMO 272; CREATININE 0.8 mg/dL (0.7-1.2); ESTIMATED GFR > 60; GLUCOSE 74 mg/dL (70-104); GOT 92 U/L (10-34); GPT 42 U/L (10-44); MAGNESIUM 1.8 mg/dL (1.5-2.7); POTASSIUM 3.3 mmol/L (3.5-5.1); SODIUM 137 mmol/L (136-145); TCO2 18 mmol/L (25-35); TOTAL BILIRUBIN 2.12 mg/dL (0.20-1.00); TOTAL PROTEIN 6.2 g/dL (6.3-8.3)
[2019-10-28] MEDS: ATIVAN IV PRN ×3 (06:53→23:45)
[2019-10-28] MEDS ORDERED: VALIUM IM ONE (08:24)
[2019-10-28] MEDS: POTASSIUM CHLORIDE 20 MEQ/SWI 20 MEQ/100 ML IVPB IV SCH ×2 (08:34→10:53)
[2019-10-28] MEDS: PROTONIX IV SCH ×2 (08:35→18:32)
[2019-10-28] MEDS: SODIUM CHLORIDE 0.9% INJ SCH ×2 (08:35→18:32)
[2019-10-28] MEDS: THIAMINE 500 MG in NS 50 ML IV SCH ×2 (09:00→17:00)
--- NOTE | 2019-10-28 09:16 | PROGRESS NOTE ---
DATE: 10/28/2019 INTERVAL HISTORY: Mr. Acuna was admitted for reported suicidal ideation. He initially had presented to the [facility], and was transferred over to [facility]. At nighttime, when he was trying to swallow his pills, he had an aspiration event and vomiting, though the color of vomiting was not reported. He also received 1 unit of blood transfusion. His hemoglobin increased appropriately. His sodium increased rather rapidly after intravenous fluid resuscitation. His alcohol level was elevated. SUBJECTIVE: Mr. Acuna is drowsy, but arousable to verbal stimuli. He has generalized tremors affecting head and bilateral upper extremity. He denies any chest pain, shortness of breath. When I try to elicit history about his chief complaints and history of present illness, he could only say that he had about 6 cans of beer yesterday, but he could not provide any other meaningful data. He did not answer questions related to suicide and homicidal ideation properly. REVIEW OF SYSTEMS: Positive for feeling cold. Positive for body ache. Positive for drowsiness. Negative for chest pain. Negative for abdominal pain. OBJECTIVE: Vital Signs: Temperature 98.3 degrees, pulse 69, respiratory rate 16, blood pressure 136/82, saturating 99% on room air. HEENT: Oral cavity is dry. Lungs: Air entry bilaterally equal. No wheeze, rhonchi, crackles. Cardiovascular: S1, S2 normal. No murmur or gallop. His generalized tremulousness is creating artifact on lunchroom monitor. Abdomen: Soft, nontender. Active bowel sounds. Extremities: No lower extremity edema. : He has urine catheter. Neurologic: He has a resting tremor of bilateral upper extremities. He appears cachectic. He was able to wiggle his toes on my examination, and move both upper extremities. LABORATORY DATA: Hemoglobin of 9.4, platelets 125,000. Potassium 3.3, chloride 104, BUN 12, creatinine 0.8, his sodium improved from 123 to 137. His total bilirubin is 2.1. Plasma alcohol is 275. MICROBIOLOGY: No positive microbiological data. IMAGING: No new imaging. ASSESSMENT AND PLAN: 1. Delirium tremens due to alcohol withdrawal syndrome. Continue intravenous lorazepam as needed. I will give him one-time intramuscular diazepam. I will start him on high-dose intravenous thiamine, and after one of the doses have been given, I will start D5 containing intravenous fluids. Once he is able to take by mouth reliably, I will start him on folic acid and multivitamin. Until then, I will continue nothing by mouth status. 2. Reported suicide ideation. I will continue one-to-one suicide precautions. Currently, he does appear to have delirium, and was not able to voice whether he actually had suicidal or homicidal ideation or not. He would eventually need [facility] consultation. 3. Hypokalemia, currently being repleted. 4. Normocytic anemia. Noticeably, his hemoglobin was pretty close to being normal in 2019, and in 10/2019, first week. His current anemia could be suspicious for acute gastrointestinal bleed, which could potentially be upper considering his alcohol use. Alcoholic peptic ulcer disease is a possibility. He is status post 1 unit of packed red blood cell. Second unit has also been cross-matched. I will start him on intravenous pantoprazole every 12 hours. He hasn't had hemetemesis or melena. Follow up occult blood of stool. 5. Others. Mr. Acuna has history of coronary artery disease, myocardial infarction, essential hypertension, depression, tobacco abuse, chronic obstructive pulmonary disease, and cerebrovascular accident. I could not, however, confirm all these through clinical encounter, and these were recorded from previous records. I will keep him on inhaled albuterol/ipratropium nebulization. 6. Disposition. Monitor the patient in the intensive care unit. 40 minutes of critical care time has been spent in taking care of this patient. I discussed the plan of care in detail with the patient's nurse. I will try and get in touch with his sister. cc: MD KRISTY Amado
[2019-10-28] MEDS: NS 1,000 ML IV SCH (09:27)
[2019-10-28] MEDS: D5 1/2 NS 1,000 ML IV SCH ×2 (10:30→12:10)
[2019-10-28 15:18] LABS: AGAP 14; BUN 11 mg/dL (8-22); CALCIUM 7.6 mg/dL (8.8-10.2); CHLORIDE 102 mmol/L (98-107); COSMO 271; CREATININE 0.8 mg/dL (0.7-1.2); ESTIMATED GFR > 60; GLUCOSE 92 mg/dL (70-104); POTASSIUM 3.7 mmol/L (3.5-5.1); SODIUM 136 mmol/L (136-145); TCO2 20 mmol/L (25-35)
[2019-10-28] MEDS ORDERED: LIDODERM TOP ONE (16:46)
[2019-10-29] MEDS: THIAMINE 500 MG in NS 50 ML IV SCH ×2 (00:59→08:15)
[2019-10-29] MEDS: D5 1/2 NS 1,000 ML IV SCH (03:42)
[2019-10-29] MEDS: PROTONIX IV SCH (06:29)
[2019-10-29 07:14] LABS: BASO# 0.03 X1000 (0.0-0.2); BASO% 0.5 % (0.0-0.8); EOS# 0.07 X1000 (0.0-0.7); EOS% 1.1 % (0.0-10.0); HEMATOCRIT 25.8 % (42.0-52.0); HEMOGLOBIN 8.7 g/dL (14.0-18.0); LYMPH# 1.08 X1000 (1.2-3.4); LYMPH% 16.5 % (20.5-51.1); MCH 32.5 PG (27-31); MCHC 33.7 g/dL (33-37); MCV 96.3 FL (81-99); MONO# 1.07 X1000 (0.11-0.59); MONO% 16.3 % (1.7-9.3); MPV 9.4 FL (7.4-10.4); NEUT# 4.31 X1000 (1.4-6.5); NEUT% 65.6 % (42.2-75.2); PLT 161 X1000 (130-400); RBC 2.68 XMIL (4.7-6.1); RDW 16.4 % (11.5-14.5); WBC 6.56 X1000 (4.8-10.8)
[2019-10-29 08:05] LABS: AGAP 12; ALB/GLOB RATIO 1.5; ALBUMIN 3.2 g/dL (3.5-5.0); ALKALINE PHOSPHATASE 94 U/L (32-122); BUN 9 mg/dL (8-22); CALCIUM 7.5 mg/dL (8.8-10.2); CHLORIDE 96 mmol/L (98-107); COSMO 262; CREATININE 0.8 mg/dL (0.7-1.2); ESTIMATED GFR > 60; GLUCOSE 114 mg/dL (70-104); GOT 59 U/L (10-34); GPT 35 U/L (10-44); POTASSIUM 2.9 mmol/L (3.5-5.1); SODIUM 131 mmol/L (136-145); TCO2 23 mmol/L (25-35); TOTAL BILIRUBIN 1.73 mg/dL (0.20-1.00); TOTAL PROTEIN 5.4 g/dL (6.3-8.3)
[2019-10-29] MEDS ORDERED: LIBRIUM PO SCH (09:00)
--- NOTE | 2019-10-29 10:44 | PROGRESS NOTE ---
DATE: 10/29/2019 SUBJECTIVE: I have seen and examined Mr. Acuna this morning. Mr. Acuna remains in the current critical care unit. He is currently on one-to-one observation because of alert suicidal ideation on admission. This morning, Mr. Acuna tells me that he is feeling better and that he is ready to get out of here. Per the nursing staff, he was able to eat about 25% of his breakfast this morning and he is more lucid. OBJECTIVE: Current Vital Signs: Blood pressure is 153/92, pulse of 94, respirations are 23, temperature is 98.8 degrees. General Examination: Mr. Acuna is a 64-year-old, gentleman. He was in bed. He does not seem to be in any distress. HEENT: Mucosa is pink and moist. Anicteric. Acyanotic. Neck: Supple. Chest: Air entry was bilaterally reduced. Just some mild expiratory rhonchi on the left posterior lung field. Cardiovascular: Regular rate and rhythm. No murmurs, no rubs, no gallops. GI: Abdomen was soft, nontender. Bowel sounds present. : There is a Perez catheter in place. Extremities: No pedal edema. The left lower extremity is slightly more swollen, especially at the thigh level. There are some ecchymotic lesions in the medial posterior thigh on the left. The distal pulses were present. ACID EXTRACTOR: The patient is awake, alert. Seems to be more conversational. He was able to follow basic commands. He does have some mild residual tremors in both hands. Is and Os: Urine output was 1725. He is currently positive balance of 115. Laboratory Data: Has also been reviewed. He is slightly anemic with a hemoglobin of 8.7. Chemistry is also reviewed. Potassium is 2.9, sodium is 131. The AST and ALT have been trending down. The plasma alcohol level was about 275 on admission. ASSESSMENT: 1. Altered mental status on presentation, presumably from metabolic encephalopathy and alcohol intoxication. 2. Reported suicidal ideation. 3. Hyponatremia on presentation, presumably from beer potomania. 4. Hypokalemia. We will continue to replace. 5. Normocytic anemia. The patient is status post 1 unit of packed red blood cell transfusion. Hemoglobin and hematocrit seem to be fairly within expected ranges. We will continue to monitor. 6. Alcohol abuse with intoxication levels on admission. There is also alert report that the patient was having delirium tremens. He is currently on protocol. 7. Left leg swelling. Unsure if this is due to trauma versus possible deep venous thrombosis. We will get a Doppler ultrasound of the leg. 8. Alcohol-induced liver injury. The AST is trending down. ALT has normalized. PLAN: In general, I think Mr. Acuna is doing a lot better. He seems to be more alert. He is more conversational and he is following commands. We are going to discontinue the Perez catheter today. We are going to advance his diet to a regular diet. We will get a Doppler ultrasound of the left leg and transfer him from the ICU to the medical floor. We will also consult physical therapy to start working with him. His disposition is going to depend on the rest of the hospital course. We will also get psychiatry to evaluate him once he is medically stable. cc: Yousuf Najera MD MTDD
[2019-10-29] MEDS: LIBRIUM PO SCH (21:27)
[2019-10-30] MEDS: PROTONIX PO SCH (06:48)
[2019-10-30 07:52] LABS: HEMATOCRIT 26.9 % (42.0-52.0); HEMOGLOBIN 8.9 g/dL (14.0-18.0); MCH 31.9 PG (27-31); MCHC 33.1 g/dL (33-37); MCV 96.4 FL (81-99); MPV 9.3 FL (7.4-10.4); RBC 2.79 XMIL (4.7-6.1); WBC 6.88 X1000 (4.8-10.8)
[2019-10-30 08:08] LABS: AGAP 11; ALBUMIN 2.8 g/dL (3.5-5.0); BUN 9 mg/dL (8-22); CALCIUM 7.4 mg/dL (8.8-10.2); CHLORIDE 100 mmol/L (98-107); COSMO 268; CREATININE 0.7 mg/dL (0.7-1.2); ESTIMATED GFR > 60; GLUCOSE 110 mg/dL (70-104); POTASSIUM 2.6 mmol/L (3.5-5.1); SODIUM 134 mmol/L (136-145); TCO2 23 mmol/L (25-35)
[2019-10-30] MEDS ORDERED: POTASSIUM PHOSPHATE 60 MEQ in NS 250 ML IV ONE (08:38)
[2019-10-30] MEDS: VITAMIN B-1 PO SCH (09:44)
[2019-10-30] MEDS: THERA M PLUS PO SCH (09:44)
[2019-10-30] MEDS: NEUTRA-PHOS PO SCH ×4 (09:44→21:47)
[2019-10-30] MEDS: LIBRIUM PO SCH ×2 (09:49→21:46)
[2019-10-30] MEDS: NS 1,000 ML IV SCH (15:50)
--- NOTE | 2019-10-30 16:08 | PROGRESS NOTE ---
DATE: 10/30/2019 SUBJECTIVE: This morning Mr. Acuna refers to be doing well. He was actually sitting up eating his breakfast at the time of the encounter. He was seen to be shaking slightly, but he was able to feed himself. There was a nurse funeral director's assistant in the room with him for observation purposes. OBJECTIVE: Vital signs: Blood pressure was 143/74, pulse of 85, respiration was 20, temperature 98.3 degrees, the patient was saturating 100% on room air. General: On general exam, Mr. Acuna is a 64-year-old gentleman. He was in bed, feeding himself. He was not in any distress. HEENT: Mucosa is pink and moist. Anicteric. Acyanotic. Neck: Supple. Respiratory System: There is good air entry bilateral. Mild increase in the expiratory phase of respiration and a few rhonchi. Cardiovascular: Regular rate and rhythm. No murmurs, no rubs, no gallops. GI: Abdomen was soft, nontender. Bowel sounds present. Extremities: No pedal edema. The left lower extremity is minimally swollen and there was some ecchymotic lesions in the medial posterior region. Pulses were unremarkable. COMBINATION SAW OPERATOR: Patient was awake and follows basic commands. The patient is making adequate urine and he is eating 100% of his meals today. LABORATORY DATA: Mild normocytic anemia. Chemistry shows low potassium, low sodium and low phosphorus. ASSESSMENT: 1. Altered mental status on presentation presumably due to metabolic encephalopathy and alcohol intoxication, improved. 2. Reported suicidal ideation. However, this morning Mr. Acuna denies to be suicidal. We will get [facility] to evaluate him. 3. Hyponatremia on presentation secondary to beer potomania, improving. 4. Hypokalemia with hypophosphatemia secondary to long-standing alcohol use and abuse, complicated with possible refeeding syndrome. We will continue to replace. 5. Normocytic anemia. The patient was transfused 1 unit during the hospital course. Hemoglobin and hematocrit are stable. 6. Alcohol use and abuse with reported delirium tremens on admission, improved. 7. Left leg mild swelling. Deep venous thrombosis is negative. We think this was just traumatic. CK is unremarkable for rhabdo. 8. Alcohol-induced liver injury. Enzymes are trending down. 9. Generalized weakness and deconditioning. The patient has been evaluated by Physical therapy today. He did need max funeral director's assistant for mobility to stand up and minimum assist to supine to sit. They have recommended the patient to benefit from skilled physical therapy. In general, I think Mr. Acuna is doing better, he is more alert, more conversational. He was feeding himself this morning. As I said, he has declined to have any suicidal ideation. I am unsure if the alert suicidal ideation occurred in the context that he was intoxicated. At any point, [facility] will screen him and then we will go from there. He will also need to be in a rehab facility because of his remarkable weakness and deconditioning. We will continue to replace his electrolytes and mineral abnormalities. cc: Yousuf Najera MD
[2019-10-31] MEDS: NS 1,000 ML IV SCH (04:41)
[2019-10-31] MEDS: PROTONIX PO SCH ×2 (05:53→09:33)
[2019-10-31] MEDS ORDERED: POTASSIUM PHOSPHATE 60 MEQ in NS 250 ML IV ONE (08:19)
[2019-10-31 08:27] LABS: AGAP 13; ALBUMIN 2.1 g/dL (3.5-5.0); BUN 11 mg/dL (8-22); CHLORIDE 108 mmol/L (98-107); COSMO 277; CREATININE 0.7 mg/dL (0.7-1.2); ESTIMATED GFR > 60; GLUCOSE 103 mg/dL (70-104); PHOSPHORUS 3.7 mg/dL (2.7-4.5); POTASSIUM 2.8 mmol/L (3.5-5.1); SODIUM 139 mmol/L (136-145); TCO2 18 mmol/L (25-35)
--- NOTE | 2019-10-31 08:30 | Extremity Venous Study ---
PROCEDURE NAME: Venous U/S Left Leg - 10/29/2019 TECHNICAL TRANSLATOR: Isabella. REQUESTING PHYSICIAN: Dr. Najera. INDICATIONS: Edema. The prepress technician noted a limited study due to patient participation. FINDINGS: The deep and superficial veins of the left lower extremity were visualized along their course. All vessels were compressible with forward flow and no evidence of intraluminal thrombus. SUMMARY: No deep or superficial venous thrombosis in the left lower extremity. cc: MD Yousuf Guerrero MD
[2019-10-31 08:36] LABS: CALCIUM 6.3 mg/dL (8.8-10.2)
[2019-10-31] MEDS: LIBRIUM PO SCH (08:36)
[2019-10-31] MEDS: THERA M PLUS PO SCH (09:32)
[2019-10-31] MEDS: NEUTRA-PHOS PO SCH ×4 (09:32→21:45)
[2019-10-31] MEDS: VITAMIN B-1 PO SCH (09:32)
[2019-10-31] MEDS ORDERED: CELEBREX PO ONE (11:46)
--- NOTE | 2019-10-31 12:17 | PROGRESS NOTE ---
DATE: 10/31/2019 SUBJECTIVE: This morning, Mr. Acuna refers to be doing well. He said he still has some pain in left leg. He was screened early on by [facility] and was deemed not any candidate for inpatient management. He also wants to do physical rehab at this point. OBJECTIVE: Vital Signs: Blood pressure is 126/76, pulse of 92, respirations are 19, temperature is 98.8 degrees. General Examination: Mr. Acuna is a 64-year-old, male. He is in bed. No distress. HEENT: Mucosa is pink and moist. Anicteric. Acyanotic. Neck: Supple. Chest: Good air entry bilaterally. There is a few wheezes posteriorly with increased expiratory phase of respiration. Cardiovascular: Regular rate and rhythm. GI: Abdomen is soft, nontender. Bowel sounds are present. Extremities: No pedal edema. Mild swelling in the left posteromedial part of the thigh in the lower extremity. TURNSTILE COLLECTOR: Patient is awake, alert, and oriented. Laboratory Data: Chemistry is reviewed. There are still some electrolyte abnormalities, which we will continue to replace. ASSESSMENT: 1. Altered mental status on presentation secondary to alcohol intoxication and metabolic encephalopathy, resolved. 2. Reported suicidal ideation. Patient denies any more suicidal thought. [facility] has evaluated the patient. We will discontinue the one-on-one. 3. Electrolyte abnormalities. We will continue to replace. 4. Normocytic anemia during the hospital course. The patient is status post 1 unit of packed red blood cell transfusion. Hemoglobin and hematocrit are stable. 5. Alcohol use and abuse with reported delirium tremens on admission, improved. 6. Mild swelling to left leg, presumably after mechanical fall. Doppler ultrasound shows no deep venous thrombosis. We will continue to treat this symptomatically. 7. Alcohol-induced liver injury, improved. 8. Generalized weakness and deconditioning. Physical therapy is on board and we are pending evaluation for possible rehab placement. cc: Yousuf Najera MD [facility]
[2019-10-31] MEDS ORDERED: ANALGESIC BALM TOP PRN (16:28)
[2019-10-31] MEDS: ATIVAN IV PRN (16:28)
--- NOTE | 2019-10-31 17:26 | Diag Imaging Result Doc PS360 ---
EXAM: CHEST-PORTABLE 10/31/2019 HISTORY: Rehab placement TECHNIQUE: AP portable upright at 1651 COMMENT: There is a granuloma in the right costophrenic angle. The inspiration is less optimal than on 10/20/2019. Otherwise are has been no significant change in the appearance of the chest. IMPRESSION: No acute disease. Electronically signed by Ananda Greenberg 10/31/2019 5:24 PM
[2019-11-01] MEDS: PROTONIX PO SCH (06:40)
[2019-11-01 07:57] LABS: AGAP 10; ALBUMIN 3.3 g/dL (3.5-5.0); BUN 13 mg/dL (8-22); CALCIUM 7.3 mg/dL (8.8-10.2); CHLORIDE 101 mmol/L (98-107); COSMO 274; CREATININE 0.8 mg/dL (0.7-1.2); ESTIMATED GFR > 60; GLUCOSE 92 mg/dL (70-104); MAGNESIUM 0.8 mg/dL (1.5-2.7); PHOSPHORUS 3.2 mg/dL (2.7-4.5); POTASSIUM 3.7 mmol/L (3.5-5.1); SODIUM 137 mmol/L (136-145); TCO2 26 mmol/L (25-35)
[2019-11-01] MEDS ORDERED: MAGNESIUM SULFATE 4 GM/S.W.I. 4 GM/100 ML IVPB IV ONE (08:24)
[2019-11-01] MEDS: THERA M PLUS PO SCH (09:30)
[2019-11-01] MEDS: CELEBREX PO SCH (09:31)
[2019-11-01] MEDS: MAG-OX PO SCH ×2 (09:31→21:27)
[2019-11-01] MEDS: NEUTRA-PHOS PO SCH ×4 (09:31→21:27)
[2019-11-01] MEDS: VITAMIN B-1 PO SCH (09:31)
--- NOTE | 2019-11-01 12:27 | PROGRESS NOTE ---
DATE: 11/01/2019 SUBJECTIVE: I have seen and examined Mr. Acuna today. He said he has not really been given any food this morning however, it is documented that he consumed 100% of his meals. OBJECTIVE: Vital Signs: Blood pressure 148/73, pulse 92, respirations 18, and temperature 98.4 degrees. Patient is saturating 100% on room air. General: Mr. Acuna is a 64-year-old male. He is in bed in no distress. Mucosa is pink and moist. Anicteric. Acyanotic. Neck: Supple. Respiratory: Air entry is bilaterally reduced. There is increased expiratory phase of respiration but no crackles. No rhonchi. Cardiovascular: Regular rate and rhythm. GI: Abdomen is soft and nontender. Bowel sounds present. Extremities: No pedal edema. The left lower extremity is minimally swollen especially to the posteromedial part of the thigh and the leg. There is some ecchymotic lesion from trauma. CORRECTIONAL TREATMENT SPECIALIST: Patient is awake, alert, and follows commands. LABORATORY DATA: Chemistry is completely normal. Magnesium is 0.8. ASSESSMENT: 1. Altered mental status on presentation secondary to alcohol intoxication and metabolic encephalopathy improved. 2. Reported suicidal ideation. Patient denies any suicidal thoughts and was screened by [facility]. 3. Electrolyte abnormality including hypomagnesemia. We will continue to replace. 4. Normocytic anemia. Patient is status post 1 PRBC transfusion. 5. Alcohol use and abuse with reported delirium tremens on admission resolved. 6. Left lower extremity swelling with soft tissue traumatic injury. Doppler ultrasound does not show DVT. We will continue pain management, and continue with physical therapy. 7. Alcohol-induced liver injury improved. 8. Generalized weakness and deconditioning. Physical Therapy is on board. There is a plan to get Mr. Acuna to rehab on Monday. cc: Yousuf Najera MD
[2019-11-01] MEDS: ATIVAN IV PRN (18:31)
[2019-11-02] MEDS: DUONEB (A & A) INH PRN ×4 (04:12→22:17)
[2019-11-02] MEDS: PROTONIX PO SCH (06:26)
[2019-11-02] MEDS: VITAMIN B-1 PO SCH (10:18)
[2019-11-02] MEDS: CELEBREX PO SCH (10:19)
[2019-11-02] MEDS: THERA M PLUS PO SCH (10:19)
[2019-11-02] MEDS: MAG-OX PO SCH ×2 (10:19→20:56)
--- NOTE | 2019-11-02 14:26 | PROGRESS NOTE ---
DATE: 11/02/2019 SUBJECTIVE: I have seen and examined Mr. Acuna today. He was actually eating his lunch. He said he was doing well. Denies any new complaints. He requested to know when he will be discharged. OBJECTIVE: Vital signs: Blood pressure is 141/73, pulse of 71, respiration is 18, temperature is 98.3 degrees. General: Mr. Acuna is a 64-year-old gentleman. He was in bed, no distress. HEENT: Mucosa is pink and moist. Anicteric. Acyanotic. Neck: Supple. Chest: Clear to auscultation. No crepitations. No rhonchi. Cardiovascular: Regular rate and rhythm. No murmurs, no rubs, no gallops. GI: Abdomen was soft, nontender. Bowel sounds present. Extremities: No pedal edema. The left lower extremity is slightly minimally swollen with ecchymotic lesions at the posterior medial region. SALES OPERATIONS MANAGER: Patient is awake, alert, follows commands. He does have some residual tremors. LABORATORY DATA: None for today. ASSESSMENT: 1. Altered mental status on presentation secondary to alcohol intoxication and metabolic encephalopathy, improved. 2. Reported suicidal ideation on admission. The patient denies any suicidal thoughts at this point. He was screened by [facility]. 3. Electrolyte abnormality. We will continue to replace. 4. Normocytic anemia status post 1 packed red blood cells transfusion. 5. Alcohol use and abuse with reported delirium tremens on admission, resolved. 6. Left lower extremity swelling secondary to soft tissue trauma. Doppler ultrasound was negative for DVT. We will continue medical management. 7. Alcohol-induced steatohepatitis. 8. Generalized weakness and deconditioning. Will continue physical therapy. 9. Protein calorie malnutrition. Patient is on supplements. 10. Chronic alcohol use and abuse associated with tremors. The patient will be started on propranolol. 11. Disposition. Still pending rehab placement. cc: Yousuf Najera MD
[2019-11-03] MEDS: DUONEB (A & A) INH PRN ×4 (03:26→23:35)
[2019-11-03] MEDS: VITAMIN B-1 PO SCH (09:23)
[2019-11-03] MEDS: THERA M PLUS PO SCH (09:23)
[2019-11-03] MEDS: INDERAL PO SCH ×4 (09:23→20:13)
[2019-11-03] MEDS: CELEBREX PO SCH (09:23)
[2019-11-03] MEDS: MAG-OX PO SCH ×2 (09:23→20:13)
[2019-11-03] MEDS: PROTONIX PO SCH (09:23)
--- NOTE | 2019-11-03 10:15 | PROGRESS NOTE ---
DATE: 11/03/2019 SUBJECTIVE: This morning, Mr. Acuna refers to be feeling sick. He said he has some pain in his abdomen, and he said he has not had a bowel movement for a very, very long time. It is, however, documented that he had a bowel movement on 11/01/2019. OBJECTIVE: Vital Signs: Blood pressure is 144/75, pulse of 85, respirations 18, temperature 98.2 degrees, the patient is saturating 99% on room air. General: Mr. Acuna is a 64-year-old, gentleman. He is in bed. He is not in any cardiopulmonary distress. HEENT: Mucosa is pink and moist. Anicteric. Acyanotic. Neck: Supple. Chest: Clear to auscultation. There were no crepitations, no rhonchi. Cardiovascular: Regular rate and rhythm. There were no murmurs, no rubs, no gallops. GI: Abdomen was soft, minimally tender, especially in the periumbilical area, but no guarding, no rebound. Extremities: No pedal edema. Left lower extremity is slightly more swollen with some ecchymotic lesion in the posterior medial region. LEGAL EXECUTIVE ASSISTANT: The patient is awake, alert, and oriented. Still has some mild residual tremors. LABORATORY DATA: None for this morning. MEDICATIONS: The patient's current medications have all been reviewed and no changes. ASSESSMENT: 1. Altered mental status on presentation secondary to toxic metabolic encephalopathy (alcohol intoxication and hyponatremia). 2. Reported suicidal ideation on admission. The patient currently denies any suicidal thoughts. He was screened by [facility], and does not meet any inpatient treatment. 3. Electrolyte abnormality. Will continue replacement. 4. Normocytic anemia. The patient is status post 1 packed red blood cells transfusion during the early course of the hospital stay. Hemoglobin and hematocrit remain stable. 5. Alcohol use and abuse with reported delirium tremens on admission, improved. 6. Left lower extremity swelling secondary to soft tissue trauma. Doppler ultrasound was negative for deep venous thrombosis. Will continue with pain management and physical therapy. 7. Alcohol-induced steatohepatitis. 8. Generalized weakness and deconditioning. 9. Protein calorie malnutrition. The patient is on supplements. 10. Chronic alcohol use and abuse associated with tremors. cc: Yousuf Najera MD
--- NOTE | 2019-11-03 14:04 | Diag Imaging Result Doc PS360 ---
KUB ABDOMEN - 11/03/2019 INDICATION: SBO COMPARISON: 06/21/2016 FINDINGS: There is a nonobstructive bowel gas pattern. No free air or abdominal calcifications. There is an IVC filter in good position. No constipation. IMPRESSION: Negative exam. Electronically signed by Raj Howard 11/03/2019 2:01 PM
[2019-11-03] MEDS ORDERED: MIRALAX PO ONE (15:15)
[2019-11-04] MEDS: DUONEB (A & A) INH PRN ×4 (03:33→22:55)
[2019-11-04] MEDS: PROTONIX PO SCH (06:01)
[2019-11-04] MEDS: VITAMIN B-1 PO SCH (09:37)
[2019-11-04] MEDS: MIRALAX PO SCH (09:37)
[2019-11-04] MEDS: THERA M PLUS PO SCH (09:37)
[2019-11-04] MEDS: INDERAL PO SCH ×3 (09:37→21:17)
[2019-11-04] MEDS: CELEBREX PO SCH (09:37)
[2019-11-04] MEDS: MAG-OX PO SCH ×2 (09:37→21:17)
--- NOTE | 2019-11-04 15:49 | PROGRESS NOTE ---
DATE: 11/04/2019 SUBJECTIVE: I have seen and examined Mr. Acuna today. Mr. Acuna refers to be doing well. He did not have any new complaints except for the pain that he has in his left leg. He was evaluated by physical therapy as well today. OBJECTIVE: Vital Signs: Blood pressure is 116/92, pulse of 79, respirations are 19, temperature is 98.2 degrees, the patient is saturating 99% on room air. General Examination: Mr. Acuna is a 64-year-old, gentleman. He is in bed. No distress. HEENT: Mucosa is pink and moist. Anicteric. Acyanotic. Neck: Supple. Chest: There was good air entry bilaterally. No crepitations. No rhonchi. Cardiovascular: Regular rate and rhythm. No murmurs, no rubs, no gallops. GI: Abdomen was soft, nontender. Bowel sounds present. Extremities: No pedal edema. Left lower extremity has some ecchymotic lesions on the posterior region, especially on the leg, from trauma to the skin. RESEARCH ATTORNEY: The patient is awake, alert. Still has some mild residual tremors. No lab work for this morning. ASSESSMENT: 1. Altered mental status on presentation secondary to toxic metabolic encephalopathy (alcohol intoxication) and severe hyponatremia which has improved. 2. Reported suicidal ideation on admission. The patient is denying any suicidal thoughts. He was screened by [facility] and he did not meet any inpatient criteria for admission to the psychiatric unit. 3. Electrolyte abnormality including hyponatremia and hypophosphatemia, improved. 4. Normocytic anemia. The patient underwent one unit of packed red blood cell transfusion. However, hemoglobin and hematocrit have remained stable. Fecal occult blood testing was negative. 5. Alcohol use and abuse with reported delirium tremens on admission. This has resolved. 6. Left lower extremity mild swelling secondary to soft tissue trauma. A Doppler ultrasound was negative for deep venous thrombosis. Physical therapy is on board. 7. Alcohol-induced steatohepatitis. 8. Generalized weakness and deconditioning. Physical therapy on board. 9. Protein calorie malnutrition. Patient is on supplements. 10. Chronic alcohol use associated with residual alcohol-induced tremors. The patient is on propranolol and he seems to be doing a lot better with less shaking. PLAN: Mr. Acuna is a 64-year-old, male who was admitted on 10/28/2019. Today is day 8 of the hospital stay. He was initially admitted to the ICU because of delirium tremens and alcohol withdrawal syndrome despite his alcohol level was remarkably high. In any case, his mentation has gradually gotten better and he has been transferred out of the ICU to the medical floor. Throughout the hospital course, he has progressively gotten better. His hemoglobin and hematocrit have remained stable. His electrolyte abnormalities and vitamin abnormalities have all been replaced. He is feeling much better. However, he remains remarkably weak and he needs to go to rehab. Social work and case management are working on this. Of note, Mr. Acuna was on Xarelto at home before coming to the hospital, he said because he had bilateral DVTs years ago. I have not started him on Xarelto yet during the hospital course. I do not think he needs it any longer. His Doppler ultrasound of the left leg did not show any deep vein thrombosis. I have advised that he follow up with his primary care doctor about the length of therapy on the Xarelto. Mr. Acuna will be able to be discharged once we get a rehab bed. cc: Yousuf Najera MD [facility]
[2019-11-05] MEDS: DUONEB (A & A) INH PRN ×3 (03:23→15:39)
[2019-11-05] MEDS: PROTONIX PO SCH (06:11)
[2019-11-05 06:37] LABS: HEMATOCRIT 27.7 % (42.0-52.0); HEMOGLOBIN 8.9 g/dL (14.0-18.0); MCH 32.4 PG (27-31); MCHC 32.1 g/dL (33-37); MCV 100.7 FL (81-99); RBC 2.75 XMIL (4.7-6.1); RDW 15.8 % (11.5-14.5); WBC 7.37 X1000 (4.8-10.8)
[2019-11-05 06:51] LABS: AGAP 11; ALBUMIN 3.1 g/dL (3.5-5.0); BUN 14 mg/dL (8-22); CHLORIDE 102 mmol/L (98-107); COSMO 276; CREATININE 0.9 mg/dL (0.7-1.2); ESTIMATED GFR > 60; GLUCOSE 102 mg/dL (70-104); MAGNESIUM 1.1 mg/dL (1.5-2.7); PHOSPHORUS 4.6 mg/dL (2.7-4.5); POTASSIUM 3.7 mmol/L (3.5-5.1); SODIUM 138 mmol/L (136-145); TCO2 25 mmol/L (25-35)
[2019-11-05] MEDS: CELEBREX PO SCH (09:51)
[2019-11-05] MEDS: INDERAL PO SCH ×3 (09:51→21:19)
[2019-11-05] MEDS: VITAMIN B-1 PO SCH (09:52)
[2019-11-05] MEDS: THERA M PLUS PO SCH (09:52)
[2019-11-05] MEDS: MIRALAX PO SCH (09:52)
[2019-11-05] MEDS: MAG-OX PO SCH ×2 (09:52→21:19)
--- NOTE | 2019-11-05 11:56 | DISCHARGE SUMMARY ---
ADMISSION DATE: 10/27/2019 DISCHARGE DATE: 11/05/2019 Mr. Acuna was admitted on 10/27/2019, discharged on 11/05/2019, sent [facility]. PRIMARY CARE PHYSICIAN: His primary care physician is [facility]. CHIEF COMPLAINT: Mental breakdown, not feeling well. HISTORY OF PRESENT ILLNESS: A 64-year-old, history of chronic alcoholism, coronary artery disease, hypertension, depression, initially presented to [facility] with complaints of having a mental breakdown. He states he is not feeling well. He is sad. He was seen here and found to have some hyponatremia, a little bit of anemia. Due to the fact that he needed psychiatric evaluation, transfer over here from [place] to [facility] for further treatment and evaluation. At the time of exam, patient denied any headache, fever, chills, chest pain, shortness of breath, or any weight changes but seemed depressed and not wanting to answer a whole lot of questions. PAST MEDICAL HISTORY: 1. Chronic alcoholism. 2. Alcoholic liver disease. 3. Coronary artery disease. 4. Hypertension. 5. Congestive heart failure. 6. Depression. PAST MEDICAL HISTORY: Hernia repair. ADMISSION DIAGNOSES: 1. Depression and it is not clear whether he had any suicidal thoughts. 2. Hyponatremia. 3. Chronic alcoholism. 4. Normocytic anemia. HOSPITAL COURSE: He did have lower extremity venous Dopplers and there was no sign of deep or superficial venous thrombosis. His chest x-ray was no acute disease, no infiltrates, no sign of active pathology. His abdominal x-ray done on 11/02 was negative. DISCHARGE DIAGNOSES: 1. Altered mental status secondary to toxic metabolic encephalopathy, alcohol intoxication and severe hyponatremia, which improved with some fluids. 2. Low magnesium, and this was supplemented. 3. Reported suicidal ideation on admission, but patient denied any suicidal thoughts. 4. Hyponatremia, which seemed to improve. He was eating. 5. The patient underwent 1 unit of packed red blood cells and hematocrit and hemoglobin remained stable. Fecal occult blood testing was negative. 6. Alcohol use and abuse, reported delirium tremens on admission. This resolved. 7. Left lower extremity. He has had some mild swelling, did noninvasive venous studies and they were negative for any deep venous thrombosis. 8. Alcohol-induced steatohepatitis, which is improving with absence of alcohol. 9. Generalized weakness and deconditioning. Encourage physical therapy. 10. Protein calorie malnutrition. Encourage p.o. intake and I think his p.o. intake improved. 11. Chronic alcohol use associated with residual alcohol-induced tremors. The patient is on propranolol and seems to have less shaking and tolerating this well. He was admitted on 10/28/2019 and discharged on 11/05/2019, admitted to the ICU because of delirium tremens and alcohol withdrawal and his alcohol level was remarkably high. He improved, moved out of the ICU, and was eating and given multivitamins and supplemented with thiamine, and he was accepted at [facility], plan to discharge him and send him there. He is on Celebrex 200 mg a day. He will be on Mag-Ox 400 mg twice a day and multivitamin 1 a day, Protonix 40 mg a day, MiraLAX 17 g p.o. daily, did have a little constipation, and he gets Inderal 10 mg 3 times a day for his tremors, and he will be on thiamine, vitamin B1 100 mg p.o. daily. cc: Max Yang MD
[2019-11-06] MEDS: PROTONIX PO SCH (06:26)
[2019-11-06 07:43] VITALS: BP 147/77
[2019-11-06] MEDS: VITAMIN B-1 PO SCH (08:05)
[2019-11-06] MEDS: THERA M PLUS PO SCH (08:05)
[2019-11-06] MEDS: MAG-OX PO SCH (08:05)
[2019-11-06] MEDS: CELEBREX PO SCH (08:05)
[2019-11-06] MEDS: INDERAL PO SCH ×2 (08:06→15:44)
--- NOTE | 2019-11-06 10:15 | DISCHARGE SUMMARY ---
ADMISSION DATE: 10/27/2019 DISCHARGE DATE: ADDENDUM REPORT: He did not sleep much last night, but no new complaints. This morning he does not feel real good. Still depression. Temperature is 98.5 degrees, remains afebrile, pulse 76, respirations 16, blood pressure 147/77. Pupils are equal and round. Lungs are clear in all lung diaz. Cardiovascular, regular rhythm and rate without murmur or S3. Abdomen is soft. Skin is warm and dry. So, I think he is ready to go to [facility] and his orders are ready. cc: Max Yang MD
== END 2019-11-06 17:34 | DRG 897 ==
LOC: P.ED 14:57 → ICU 21:09 → SUATTDRO 21:09 → 3N 10-29 15:46
PROVIDERS: ATTEND Emergency Medicine